=== PATIENT | female | born 1955 | race Caucasian/White ===

== ENCOUNTER 2019-04-10 02:07 | Emergency (ER) | payer OTHER ==
[~2019-04-10] VITALS: Ht 157.5 cm; Wt 98.0 kg
--- NOTE | 2019-04-10 02:20 | NUR ---
BIBS FOR C/O FLU LIKE SYMPTOM (COUGH, SORE THROAT, SOB) X 2 DAYS. PT IS PLACED ON AMONITOR, VSS. SATTING 98% ON R/A. AFEBRILE. WILL CONT TO MONITOR ,
--- NOTE | 2019-04-10 02:26 | NUR ---
at the bed side
[2019-04-10] MEDS ORDERED: ALBUTEROL FS 2.5 MG/3 ML VIAL.NEB NEB ONE (02:30)
[2019-04-10 02:43] LABS: BASOPHILS % (AUTO) 0.6 % (0.0-2.0); EOSINOPHILS % (AUTO) 2.7 % (0.0-6.0); HEMATOCRIT 39 % (33-45); HEMOGLOBIN 12.8 g/dL (11.5-14.8); LYMPHOCYTES # (AUTO) 2.4 /CMM (0.8-4.8); LYMPHOCYTES % (AUTO) 36.6 % (20.0-44.0); MEAN CORPUSCULAR HGB CONC 33 g/dl (31.0-36.0); MEAN CORPUSCULAR VOLUME 90 fL (82-100); MONOCYTES # (AUTO) 0.6 /CMM (0.1-1.30); MONOCYTES % (AUTO) 8.9 % (2.0-12.0); NEUTROPHILS # (AUTO) 3.3 /CMM (1.8-8.9); NEUTROPHILS % (AUTO) 51.2 % (43.0-81.0); PLATELET COUNT (AUTO) 198 /CMM (150-450); RED BLOOD CELL COUNT(AUTO) 4.28 MIL/uL (4.0-5.2); WHITE BLOOD COUNT (AUTO) 6.5 K/uL (4.3-11.0)
[2019-04-10] MEDS ORDERED: ALBUTEROL FS 2.5 MG/3 ML VIAL.NEB ONE (02:44)
--- NOTE | 2019-04-10 02:46 | NUR ---
RT AT THE BED SIDE
[2019-04-10 03:03] LABS: CALCIUM, SERUM 9.4 mg/dL (8.5-10.1); CARBON DIOXIDE 32 mmol/L (21-32); CHLORIDE 107 mmol/L (98-107); CREATININE 0.8 mg/dL (0.6-1.3); GLUCOSE 103 mg/dL (74-106); POTASSIUM 4.2 mmol/L (3.5-5.1); SODIUM SERUM 145 mmol/L (136-145); UREA NITROGEN, BLOOD 20 mg/dL (7-18)
[2019-04-10 03:16] LABS: B-TYPE NATRIURETIC PEPTIDE 56 PG/ML (0-125)
[2019-04-10 04:00] LABS: ALBUMIN 3.5 g/dL (3.4-5.0); BILIRUBIN,DIRECT 0.1 mg/dL (0.0-0.2); BILIRUBIN,TOTAL 0.4 mg/dL (0.2-1.0); TOTAL PROTEIN, SERUM 6.9 g/dL (6.4-8.2)
[2019-04-10 04:02] LABS: APPEARANCE,URINE CLEAR (CLEAR); BILIRUBIN,URINE NEGATIVE (NEGATIVE); BLOOD, URINE NEGATIVE Ery/uL (NEGATIVE); KETONES,URINE NEGATIVE (NEGATIVE); LEUKOCYTE ESTERASE ,URINE TRACE (NEGATIVE); NITRITE, URINE NEGATIVE (NEGATIVE); PROTEIN,URINE NEGATIVE (NEGATIVE); UGLUCOSE NEGATIVE (NEGATIVE); UROBILINOGEN,URINE 0.2 EU/dL (0.2)
[2019-04-10 04:15] LABS: COLOR,URINE STRAW (YELLOW)
[2019-04-10 04:20] LABS: BACTERIA,URINE None seen /HPF (None Seen); RBC,URINE 0-2 /HPF (0-2); SQUAMOUS EPITHELIAL CELL,UR Few /HPF (None Seen)
--- NOTE | 2019-04-10 04:52 | NUR ---
md at the bed side. pt in bed awake and alert w/ family at the bed side. pt reported feeling better.
--- NOTE | 2019-04-10 05:14 | NUR ---
IV removed. Catheter intact and site benign. Pressure and 4x4 applied to site. No bleeding noted.Patient discharged to home in stable condition. Rx and Written and verbal after care instructions given. Patient verbalizes understanding of instruction.
[2019-04-10 05:15] VITALS: BP 128/75
== END 2019-04-10 05:16 | disposition home or self-care (01) ==
LOC: ER 02:09
DX: B34.8 Other viral infections of unspecified site (principal); I10 Essential (primary) hypertension; Z90.89 Acquired absence of other organs; Z98.890 Other specified postprocedural states; Z88.1 Allergy status to other antibiotic agents
CPT/HCPCS: 36415; 71045-TC; 80048-TC; 80076-TC; 81000-TC; 83690-TC; 83880; 84484-TC; 85025-TC

== ENCOUNTER 2019-04-12 09:02 | Emergency (ER) | payer OTHER ==
[~2019-04-12] VITALS: Ht 157.5 cm; Wt 97.1 kg
[2019-04-12 09:11] VITALS: BP 142/98
--- NOTE | 2019-04-12 09:24 | NUR ---
SEEN AND EXAMINED BY .
--- NOTE | 2019-04-12 09:40 | NUR ---
PT IS TAKEN TO RADIOLOGY FOR XRAY.
[2019-04-12] MEDS ORDERED: ALBUTEROL FS 2.5 MG/3 ML VIAL.NEB ONE (10:29)
--- NOTE | 2019-04-12 10:29 | NUR ---
PT REFUSED BLOOD DRAW.
[2019-04-12] MEDS ORDERED: predniSONE 50 MG TABLET PO ONE (10:30)
[2019-04-12] MEDS ORDERED: ALBUTEROL FS 2.5 MG/3 ML VIAL.NEB NEB ONE (10:30)
--- NOTE | 2019-04-12 10:30 | NUR ---
RT AT BEDSIDE FOR BREATHING TREATMENT.
[2019-04-12] MEDS ORDERED: predniSONE 10 MG TABLET ONE (10:31)
[2019-04-12] MEDS ORDERED: predniSONE 20 MG TABLET ONE (10:31)
--- NOTE | 2019-04-12 10:46 | NUR ---
Patient discharged to home in stable condition. Written and verbal after care instructions given. Patient verbalizes understanding of instruction.
== END 2019-04-12 10:47 | disposition home or self-care (01) ==
LOC: ER 09:02
DX: J40 Bronchitis, not specified as acute or chronic (principal); R09.3 Abnormal sputum; I10 Essential (primary) hypertension; Z90.89 Acquired absence of other organs; Z98.890 Other specified postprocedural states; Z88.1 Allergy status to other antibiotic agents
CPT/HCPCS: 71046; 94640; 99283; J7512 ×2

== ENCOUNTER 2019-05-30 01:24 | Emergency (ER) | payer OTHER ==
[~2019-05-30] VITALS: Ht 157.5 cm; Wt 90.7 kg
--- NOTE | 2019-05-30 01:45 | NUR ---
TO ER BED 3 AMBULATORY C/O THROAT DISCOMFORT S/P CHOKING EPISODE AT HOME. PT AAOX4 NO ACUTE DISTRESS NOTED, RESP EVEN AND UNLABORED. PLACE PT ON CARDIAC MONITORING, CONTINUOUS POX. PENDING ER MD CRENSHAW.
[2019-05-30 02:35] LABS: BASOPHILS % (AUTO) 0.5 % (0.0-2.0); EOSINOPHILS % (AUTO) 1.8 % (0.0-6.0); HEMATOCRIT 40 % (33-45); HEMOGLOBIN 13.3 g/dL (11.5-14.8); LYMPHOCYTES % (AUTO) 28.5 % (20.0-44.0); MEAN CORPUSCULAR HGB CONC 33 g/dl (31.0-36.0); MEAN CORPUSCULAR VOLUME 90 fL (82-100); MONOCYTES # (AUTO) 0.5 /CMM (0.1-1.30); MONOCYTES % (AUTO) 6.8 % (2.0-12.0); NEUTROPHILS # (AUTO) 4.5 /CMM (1.8-8.9); NEUTROPHILS % (AUTO) 62.4 % (43.0-81.0); PLATELET COUNT (AUTO) 201 /CMM (150-450); RED BLOOD CELL COUNT(AUTO) 4.42 MIL/uL (4.0-5.2); WHITE BLOOD COUNT (AUTO) 7.2 K/uL (4.3-11.0)
[2019-05-30 02:40] LABS: CALCIUM, SERUM 9.4 mg/dL (8.5-10.1); CREATININE 0.7 mg/dL (0.6-1.3); POTASSIUM 3.7 mmol/L (3.5-5.1)
[2019-05-30] MEDS ORDERED: CT SWABBABLE VALVE TRANS SET 1 EA INFUS.SET MC ONE (02:41)
[2019-05-30] MEDS ORDERED: IOHEXOL-300 100 ML VIAL IV ONE (02:41)
[2019-05-30] MEDS ORDERED: IV NS 0.9% 250 ML IV ONE (02:42)
--- NOTE | 2019-05-30 03:03 | NUR ---
PT RTANSPORTED TO RADIOLOGY FOR CT NECK WITH IV CONTRAAST.
--- NOTE | 2019-05-30 03:18 | NUR ---
PT BACK FROM RADIOLOGY. PENDING CT NECK RESULT.
--- NOTE | 2019-05-30 05:45 | NUR ---
IV removed. Catheter intact and site benign. Pressure and 4x4 applied to site. No bleeding noted. Patient discharged to home in stable condition. Written and verbal after care instructions given. Patient verbalizes understanding of instruction. ambulatory with a steady gait noted. pt aaox4 no acute distress noted, resp even and unlabored. pt family member at bedside to take pt home.
[2019-05-30 05:47] VITALS: BP 144/83
== END 2019-05-30 05:48 | disposition home or self-care (01) ==
LOC: ER 01:27
DX: R09.89 Other specified symptoms and signs involving the circulatory and respiratory systems (principal); I10 Essential (primary) hypertension; Z90.89 Acquired absence of other organs; Z98.890 Other specified postprocedural states; Z88.1 Allergy status to other antibiotic agents
CPT/HCPCS: 36415; 70491; 71045; 80048; 85025; 99284; J7030; J7050; Q9967